=== PATIENT | male | born 1955 | race American Indian/Alaskan Native ===

== ENCOUNTER 2018-05-24 10:17 | Emergency (ER) | payer BC, OTHER ==
[2018-05-24 10:55] LABS: Basophils # (Auto) 0.1 K/mm3 (0.0-0.1); Eosinophils # (Auto) 0.1 K/mm3 (0.0-0.4); Eosinophils % (Auto) 1.9 % (0.0-4.3); Hematocrit 44.1 % (35.5-45.6); Hemoglobin 14.8 gm/dl (11.8-15.2); Lymphocytes # (Auto) 2.9 K/mm3 (1.2-5.4); Lymphocytes % (Auto) 40.4 % (13.4-35.0); Mean Corpuscular HGB Conc 34 % (32-34); Mean Corpuscular Volume 89 fl (84-94); Monocytes # (Auto) 0.4 K/mm3 (0.0-0.8); Monocytes % (Auto) 5.4 % (0.0-7.3); Platelet Count 261 K/mm3 (140-440); Red Blood Count 4.96 M/mm3 (3.65-5.03); Red Cell Distribution Width 14.4 % (13.2-15.2)
[2018-05-24 11:04] LABS: INR 0.99 (0.87-1.13)
[2018-05-24 11:05] LABS: Partial Thromboplastin Time 23.6 Sec. (24.2-36.6)
--- NOTE | 2018-05-24 11:08 | Emergency Department Report ---
ED Chest Pain HPI - General Chief Complaint: Chest Pain Stated Complaint: CHEST PAIN Time Seen by Provider: 05/24/18 10:36 Source: patient, EMS Mode of arrival: Stretcher Limitations: No Limitations - History of Present Illness Initial Comments: Mr. Bolaños is a 63-year-old male with history of hypertension who presents with chest pain. He developed severe chest pain while at work while walking across the room. 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 Severe 8 out of 10 sharp pain radiating to his left arm with left hand tingling. Pain is now 2/10 after receiving aspirin and oxygen per EMS. He has been under work stress. He's been on a new job since December. Work is causing him severe amount of stress. Last year evaluated by Dr. Young boot turner. Treadmill stress test was negative. No other medical history. His PCP is Dr. Ray Ross. Extensive family history of cardiac disease. MD Complaint: chest pain -: Sudden, This morning Onset: during exertion Pain Location: left chest Pain Radiation: LUE Severity: severe Severity scale (0 -10): 4 Quality: sharp Improves With: rest Treatments Prior to Arrival: aspirin - Related Data Home Medications Medication Instructions Recorded Confirmed Last Taken Atenolol [Tenormin] 25 mg PO 05/24/18 Unknown Allergies Allergy/AdvReac Type Severity Reaction Status Date / Time No Known Allergies Allergy Unverified 01/03/15 10:48 Heart Score - HEART Score History: Slightly suspicious EKG: Non-specific Age: 45-65 Risk factors: 1-2 risk factors Troponin: < normal limit HEART Score: 3 ED Review of Systems ROS: Stated complaint: CHEST PAIN Other details as noted in HPI Comment: All other systems reviewed and negative Constitutional: denies: fever, malaise Respiratory: denies: cough Cardiovascular: chest pain ED Past Medical Hx - Past Medical History Previous Medical History?: Yes Hx Hypertension: Yes - Surgical History Past Surgical History?: No - Social History Smoking Status: Current Some Day Smoker Substance Use Type: None - Medications Home Medications: Home Medications Medication Instructions Recorded Confirmed Last Taken Type Atenolol [Tenormin] 25 mg PO 05/24/18 Unknown History ED Physical Exam - General Limitations: No Limitations General appearance: alert, in no apparent distress, other (pleasant tearful obviously upset) - Head Head exam: Present: atraumatic, normocephalic - Eye Eye exam: Present: normal appearance - ENT ENT exam: Present: mucous membranes moist - Neck Neck exam: Present: normal inspection, full ROM. Absent: tenderness, meningismus - Respiratory Respiratory exam: Present: normal lung sounds bilaterally. Absent: respiratory distress, wheezes, rales - Cardiovascular Cardiovascular Exam: Present: regular rate, normal rhythm, normal heart sounds. Absent: systolic murmur, diastolic murmur, rubs, gallop - GI/Abdominal GI/Abdominal exam: Present: soft, normal bowel sounds. Absent: distended, tenderness, guarding, rebound - Rectal Rectal exam: Present: deferred - Extremities Exam Extremities exam: Present: normal inspection - Back Exam Back exam: Present: normal inspection - Neurological Exam Neurological exam: Present: alert, oriented X3 - Psychiatric Psychiatric exam: Present: normal affect, normal mood - Skin Skin exam: Present: warm, dry, intact, normal color. Absent: rash ED Course Vital Signs 05/24/18 05/24/18 05/24/18 10:20 11:30 12:30 Temperature 97.9 F Pulse Rate 75 65 65 Respiratory 20 16 16 Rate Blood Pressure 116/82 Blood Pressure 118/82 111/53 [Left] O2 Sat by Pulse 98 100 99 Oximetry 05/24/18 13:30 Temperature 98 F Pulse Rate 66 Respiratory 16 Rate Blood Pressure Blood Pressure 99/65 [Left] O2 Sat by Pulse 100 Oximetry ED Medical Decision Making - Lab Data Result diagrams: 05/24/18 10:29 05/24/18 10:29 Abnormal Lab Results 05/24/18 05/24/18 05/24/18 10:29 10:29 10:29 WBC 7.1 RBC 4.96 Hgb 14.8 Hct 44.1 MCV 89 MCH 30 MCHC 34 RDW 14.4 Plt Count 261 Lymph % (Auto) 40.4 H Zavala % (Auto) 5.4 Eos % (Auto) 1.9 Baso % (Auto) 1.0 Lymph # 2.9 Zavala # 0.4 Eos # 0.1 Baso # 0.1 Seg Neutrophils % 51.3 Seg Neutrophils # 3.6 PT 13.5 INR 0.99 APTT 23.6 L Sodium 138 Potassium 3.0 L Chloride 99.0 Carbon Dioxide 24 Anion Gap 18 BUN 10 Creatinine 0.7 L Estimated GFR > 60 BUN/Creatinine Ratio 14 Glucose 114 H Calcium 9.2 Troponin T < 0.010 05/24/18 13:18 WBC RBC Hgb Hct MCV MCH MCHC RDW Plt Count Lymph % (Auto) Zavala % (Auto) Eos % (Auto) Baso % (Auto) Lymph # Zavala # Eos # Baso # Seg Neutrophils % Seg Neutrophils # PT INR APTT Sodium Potassium Chloride Carbon Dioxide Anion Gap BUN Creatinine Estimated GFR BUN/Creatinine Ratio Glucose Calcium Troponin T < 0.010 Vital Signs - 24 hr 05/24/18 05/24/18 05/24/18 10:20 11:30 12:30 Temperature 97.9 F Pulse Rate 75 65 65 Respiratory 20 16 16 Rate Blood Pressure 116/82 Blood Pressure 118/82 111/53 [Left] O2 Sat by Pulse 98 100 99 Oximetry 05/24/18 13:30 Temperature 98 F Pulse Rate 66 Respiratory 16 Rate Blood Pressure Blood Pressure 99/65 [Left] O2 Sat by Pulse 100 Oximetry - EKG Data 05/24/18 11:07 EKG obtained 1027 Normal sinus rhythm rate 70 beats minute normal axis normal intervals nonspecific T wave pattern no ST elevation no Q waves - Medical Decision Making Mrs. Bolaños presents with recurrent chest pain. He explains that he had and these were episodes of chest pain over the last 1-2 years. He does admit that he is under a lot of stress recently. He did undergo treadmill stress testing per Dr. Young according to his report. I also Spoke with Dr. Grande PCP. I strongly recommended follow-up with boot turner and PCP. HEART score 3. Mr. Bolaños is currently pain free. He understands to call 911 if chest pain recurs. Critical care attestation.: If time is entered above; I have spent that time in minutes in the direct care of this critically ill patient, excluding procedure time. ED Disposition Clinical Impression: Chest pain Disposition: DC-01 TO HOME OR SELFCARE Is pt being admited?: No Does the pt Need Aspirin: No Condition: Stable Instructions: Chest Pain (ED) Referrals: DAYANA ALMEIDA MD [Staff Physician] - 3-5 Days TABBY YOUNG MD [Staff Physician] - 3-5 Days Forms: Work/School Release Form(ED)
[2018-05-24 11:12] LABS: BUN/Creatinine Ratio 14; Blood Urea Nitrogen 10 mg/dL (9-20); Calcium 9.2 mg/dL (8.4-10.2); Hemolysis Index 16
[2018-05-24 14:47] VITALS: BP 129/75
== END 2018-05-24 14:47 | disposition home or self-care (01) ==
LOC: ED 10:17
DX: R07.9 Chest pain, unspecified (principal); I10 Essential (primary) hypertension; F17.200 Nicotine dependence, unspecified, uncomplicated
CPT/HCPCS: 36415; 80048; 84484; 85025; 85610; 85730; 93005; 93010